=== PATIENT | female | born 1985 | race Caucasian/White ===

== ENCOUNTER 2022-02-06 10:09 | Outpatient (CLI) | payer OTHER, SELFPAY ==
[2022-02-06 11:56] LABS: Albumin* 3.9 g/dL (3.3-5.0)
[2022-02-06 11:58] LABS: Amylase* 52 U/L (18-89); Total Protein* 6.5 g/dL (6.0-8.3)
[2022-02-06 11:59] LABS: Alanine Aminotransferase* 24 U/L (4-35); Alkaline Phosphatase* 112 U/L (40-150); Aspartate Amino Transferase* 23 U/L (12-35); Bilirubin Direct* 0.2 mg/dL (0.0-0.5); Bilirubin Total* 0.3 mg/dL (0.1-1.5); Lipase* 95 U/L (23-300)
[2022-02-06 12:42] LABS: Vitamin B12* 547 pg/mL (243-894)
[2022-02-07 11:33] LABS: Estradiol Premenol Female 49 pg/mL
[2022-02-07 12:37] LABS: Follicle Stimulating Hormone 29.3 IU/L
[2022-02-12 09:06] LABS: Folate, Serum > 22.3 ng/mL (>=5.9)
== END 2022-02-06 10:10 | disposition home or self-care (01) ==
PROVIDERS: Obstetrics & Gynecology; PCP Nurse Practitioner Family; Visit Provider Nurse Practitioner Family
DX: R10.11 Right upper quadrant pain (principal); E89.40 Asymptomatic postprocedural ovarian failure; L65.9 Nonscarring hair loss, unspecified
CPT/HCPCS: 80076; 82150; 82607; 82670; 82746; 83001; 83690; 84443

== ENCOUNTER 2023-06-22 08:17 | Outpatient (CLI) | payer OTHER, SELFPAY | END 2023-06-22 08:18 | disposition home or self-care (01) | PROVIDERS: PCP Nurse Practitioner Family; Visit Provider Nurse Practitioner Family | DX: Z00.00 Encounter for general adult medical examination without abnormal findings (principal); I10 Essential (primary) hypertension; E55.9 Vitamin D deficiency, unspecified; E66.01 Morbid (severe) obesity due to excess calories; D64.9 Anemia, unspecified; Z13.0 Encounter for screening for diseases of the blood and blood-forming organs and certain disorders involving the immune mechanism; Z13.29 Encounter for screening for other suspected endocrine disorder; Z13.1 Encounter for screening for diabetes mellitus; Z13.6 Encounter for screening for cardiovascular disorders; Z13.228 Encounter for screening for other metabolic disorders | CPT/HCPCS: 80053; 80061; 82306; 84443; 85025 ==

== ENCOUNTER 2023-07-02 15:50 | Outpatient (CLI) | payer OTHER, SELFPAY ==
--- OUTSIDE RECORDS SUMMARY | 2023-07-03 07:24 | XMS_ITS | Clinical Summary ---
Author Name Unknown Organization [employer] [facility] Address [place], [place] [address] Care Team Providers Care Hearings Reporter Name Role Phone Nonstaff, Doctor Primary Care Provider Unavailab le Allergies Active Allergy Reactions Criticality Noted Date Comments Latex Rash 04/21/2006 Medications Medication Sig Dispensed Refills Start Date End Date Status omega-3 fatty acids-vitamin E (FISH OIL) 1,000 mg Cap Take 1 capsule by mouth once daily. 0 Active multivitamin-folic acid 0.4 mg (MULTIPLE VITAMIN) tablet Take 1 tablet by mouth once daily. 0 Active Breast Pump - Rental As directed. For home use. Gestation age at delivery: 35 weeks. Reason for need: mom/baby . Length of need: 3 months 1 unit 0 01/03/2011 Active oxyCODONE-acetamin ophen, 5-325 mg, (PERCOCET 5-325) 5-325 mg per tablet Take 1-2 tablets by mouth every 4 hours if needed for Pain (severe incision pain). Max acetaminophen dose: 4000mg in 24 hrs. 30 tablet 0 01/03/2011 Active lanolin (LANSINOH) ointment Apply topically to affected area(s) every hour if needed for Other (Specify) (For nipple discomfort.). 1 Tube 0 01/03/2011 Active ferrous sulfate, 65 mg elemental, (IRON, FERROUS SULFATE,) 325 mg (65 mg iron) tablet Take 1 tablet by mouth once daily with a meal. 30 tablet 0 01/03/2011 Active ibuprofen (ADVIL; MOTRIN) 600 mg tablet Take 1 tablet by mouth every 6 hours if needed for Pain. Maximum of 3200 mg in 24 hours. 60 tablet 0 01/03/2011 Active ferrous sulfate, 45 mg elemental, 142 mg (45 mg iron) extended release tablet Take 1 tablet by mouth once daily with a meal. 30 tablet 0 01/05/2011 Active citalopram (CELEXA) 20 mg tabletIndications: Major depressive disorder, single episode, unspecified Take 1 tablet by mouth once daily. 30 tablet 0 01/05/2011 Active docusate (COLACE) 100 mg capsule Take 1-2 capsules by mouth once daily if needed (take to keep stools soft). 60 capsule 0 01/05/2011 Active Active Problems Problem Noted Date Diagnosed Date GDM (gestational diabetes mellitus) 01/03/2011 Repeat C/S, Infant in NICU 01/02/2011 Pre-eclampsia, severe, delivered 01/02/2011 Obesity in , delivered 01/02/2011 Anemia 01/02/2011 Morbid obesity (BMI 40.0 or higher) 07/12/2008 Overview: Body mass index is 49.43 kg/(m^2). Major depressive disorder, single episode, unspe cified 09/25/2006 Estimated Date of Delivery Comme nts Yes 02/07/2011 Based on Other B asis Resolved Problems Problem Noted Date Diagnosed Date Resolved Date Primary LST Section at 41 1/7 weeks 9 01/02/2011 Post - dates 07/13/2008 09/20/2008 GBS (group B Streptococcus c arrier), +RV culture, currently 07/13/2008 09/20/2008 Failed medical induction of labor 07/13/2008 09/20/2008 Suspected VSD 06/23/2008 09/21/19 09 Unspecified suppurative otitis media 04/21/2006 01/02/2011 Immunizations Name Administration Dates Next Due DTaP 11/08/1990,12/24/1988,04/11/1986 ,02/02/1986 Hepatitis B (Adult) 12/10/2006 Hepatitis B (Peds) 04/20/2006,08/31/2003, 004 Human Papilloma Virus Vaccine 04/07/2007, 007 08/06/2007 MMR 12/24/1988 Oral Polio Vaccine 11/08/1990,12/24/1988 Tdap 12/22/2008 Tuberculin (PPD) 02/15/2007 Family History Medical History Relation Name Comments Hypertension Father Diabetes Maternal Grandmother Good Health Mother Thyroid Disease Mother Cancer Other uterine GGM Diabetes Paternal Grandfather Relation Name Status Comments Brother Alive Daughter Alive Father Alive Maternal Grandfather Maternal Grandmother Alive Mother Alive Other Paternal Grandfather Paternal Grandmother Alive Sister Alive x4 Social History Tobacco Use Types Packs/Day Years Used Date Smoking Tobacco: Former Cigarettes Q uit: 11/30/2007 Alcohol Use Standard Drinks/Week Comments Yes 0 (1 standard drink = 0.6 oz pur e alcohol) social Estimated Date of Delivery Comme nts Yes 02/07/2011 Based on Other B asis Sex and Gender Information Value Date Recorded Sex Assigned at Not on file Gender Identity Not on file Sexual Orientation Not on file Obstetrics History Para Term AB IAB SAB Ectopic Multiple Livin g Live Births 2 2 1 1 2 2 Date Outcome GA Total Labor Labor/2nd/3rd Weight Sex Delivery Anes PTL Raquel A1 A5 Name Cl in 07/13 Term 41w 0d 3.77 kg (8 lb 4.8 oz) F N Carol ng [place] Delivery Location:[facility] 01/01 35w 2d 2.92 kg (6 lb 7 oz) M Y Carol ng Delivery Location:[facility] Comments:In NICU at [facility] Last Filed Vital Signs Vital Sign Reading Time Taken Comments Blood Pressure 139/53 01/05/2011 8:03 AM CDT Pulse 65 01/05/2011 8:03 AM CDT Temperature 36.6 ??C (97.9 ??F) 01/05/2011 8:03 AM CD T Respiratory Rate 16 01/05/2011 8:03 AM CDT Oxygen Saturation 97% 01/04/2011 4:00 PM CDT Inhaled Oxygen Concentration - - Weight 134.8 kg (297 lb 1.6 oz) 01/04/2011 8:38 AM CDT Height 162.6 cm (5' 4) 01/02/2011 2:26 AM CDT Body Mass Index 51 01/02/2011 2:26 AM CDT Plan of Treatment Health Maintenance Due Date Last Done Comments COVID-19 vaccine series (#1) 06/04/1986 Depression screening for age 12+ 1997 BMI (ht and wt on same day) for age 18+ 12/03/2003 Tetanus booster 12/22/2018 12/22/2008 Pap test for age 21-65 12/14/2022 0, 12/15/2019, 08/18/2014, Additional history exists Influenza for age 9-49 01/30/2023 Hepatitis C screening for age 18-79 Completed 04/20/2006 HIV for age 15-65 Completed 12/15/2007 Tdap Completed 12/22/2008 Pneumococcal series for age 6-64 Aged Out No longer eligible based on patient's age to complete this topic Advance Directives Latest Code Status on File Code Status Date Activated Date Inactivated Comments Full Code 01/02/2011 1:54 AM 01/05/2011 4:56 PM Code Status History Code Status Date Activated Date Inactivated Comments Full Code 07/17/2008 7:44 AM 07/17/2008 10:36 AM Full Code 07/13/2008 8:40 PM 07/16/2008 8:41 PM Full Code 07/11/2008 5:12 PM 07/13/2008 4:18 PM Full Code 06/27/2008 9:42 AM 06/27/2008 1:00 PM Care Teams Hearings Reporter Relationship Specialty Start Date End Date Nonstaff, Doctor NON STAFF DOCTOR PCP - General 05/11/09
== END 2023-07-02 15:51 | disposition home or self-care (01) ==
LOC: NFLDREF 07-03 07:22
PROVIDERS: PCP Nurse Practitioner Family; Referring Provider Nurse Practitioner Family; Visit Provider Nurse Practitioner Family
DX: D64.9 Anemia, unspecified (principal); Z13.21 Encounter for screening for nutritional disorder
CPT/HCPCS: 82607; 82746; 83540; 83550

== ENCOUNTER 2023-09-29 13:00 | Outpatient (RCR) | payer OTHER, SELFPAY | END 2023-12-29 16:58 | disposition home or self-care (01) | PROVIDERS: PCP Nurse Practitioner Family; Visit Provider Physician Assistant | DX: M17.11 Unilateral primary osteoarthritis, right knee (principal); M19.09 Primary osteoarthritis, other specified site; M25.561 Pain in right knee; R26.89 Other abnormalities of gait and mobility; R29.898 Other symptoms and signs involving the musculoskeletal system; Z51.89 Encounter for other specified aftercare | CPT/HCPCS: 97110; 97162 ==

== ENCOUNTER 2024-06-23 08:17 | Outpatient (CLI) | payer OTHER, SELFPAY | END 2024-06-23 08:18 | disposition home or self-care (01) | PROVIDERS: PCP Nurse Practitioner Family; Visit Provider Nurse Practitioner Family | DX: I10 Essential (primary) hypertension (principal); E55.9 Vitamin D deficiency, unspecified; D64.9 Anemia, unspecified; Z13.220 Encounter for screening for lipoid disorders | CPT/HCPCS: 80053; 80061; 82306; 83036; 85025 ==

== ENCOUNTER 2025-03-20 11:21 | Emergency (ER) | payer OTHER, SELFPAY ==
[2025-03-20 12:01] VITALS: BP 165/82; PULSE 70; RESP 18; TEMP 36.9; O2SAT 97; BMI 60.1
--- NOTE | 2025-03-20 13:34 | ED.GENADULT ---
HPI - General Adult General Chief complaint: Unspecified Complaint, Adult Stated complaint: Exposure to a bat Time Seen by Provider: 03/20/25 12:12 Source: patient Mode of arrival: ambulatory Limitations: no limitations History of Present Illness HPI narrative: Patient is a 39-year-old female presenting to emergency department due to finding of after house. She states she was sitting in her dining room when a bat flew past her and rubbed up against her shoulder. She states she knows for a fact that it body rubbed up against her skin but does not think it has slowed down enough to bite her. Did not notice any bite church. Denies any pain. She is unsure how long the bat has been in the house. She has never been vaccinated for rabies before. This occurred shortly prior to arrival. She is told to come in by her clinic. Related Data Home Medications ?Medication ?Instructions ?Recorded ?Confirmed cholecalciferol (vitamin D3) 50 50 mcg PO QDAY 06/22/23 03/20/25 mcg (2,000 unit) capsule cetirizine 10 mg tablet 10 mg PO QDAY PRN 08/31/23 03/20/25 cyclobenzaprine 10 mg tablet 10 mg PO TID PRN 08/31/23 03/20/25 albuterol sulfate 90 mcg/actuation 2 puff inhalation Q4-6H PRN 07/08/24 03/20/25 aerosol inhaler sertraline 50 mg tablet 25 mg PO QDAY 11/28/24 03/20/25 fluticasone propionate 50 1 spray intranasal DAILY 03/20/25 03/20/25 mcg/actuation nasal spray,suspension montelukast 10 mg tablet 10 mg PO QPM 03/20/25 03/20/25 Previous Rx's ?Medication ?Instructions ?Recorded metoprolol tartrate 100 mg tablet 50 mg (1/2 x 100 mg) PO BID #90 06/23/24 tabs lorazepam 0.5 mg tablet (Ativan) 0.5 mg PO QDAY PRN anxiety #30 tabs 09/27/24 triamcinolone acetonide 0.5 % 1 applic topical TID #80 grams 10/11/24 topical cream estradiol 0.1 mg/24 hr semiweekly 1 patch transdermal 2XW #24 ea 11/28/24 transdermal patch mupirocin 2 % topical ointment 1 applic topical TID #22 grams 12/30/24 Allergies Allergy/AdvReac Type Severity Reaction Status Date / Time gadodiamide Allergy Mild Nausea Verified 03/20/25 12:07 Iodinated Contrast Media Allergy Verified 03/20/25 12:07 latex Allergy Verified 03/20/25 12:07 lisinopril Allergy Verified 03/20/25 12:07 Review of Systems Narrative: Pertinent systems reviewed and were negative unless stated in HPI PFSH PFSH Medical History Stress ?F43.9 - Reaction to severe stress, unspecified (ICD-10) Teratoma of ovary ?D27.9 - Benign neoplasm of unspecified ovary (ICD-10) Severe pre-eclampsia, with delivery (01/02/11) ?O14.14 - Severe pre-eclampsia complicating childbirth (ICD-10) Iatrogenic enterotomy Osteoarthritis of right patellofemoral joint ?M17.11 - Unilateral primary osteoarthritis, right knee (ICD-10) Major depressive disorder with single episode (09/25/06) ?F32.9 - Major depressive disorder, single episode, unspecified (ICD-10) Surgical History Status post unilateral salpingo-oophorectomy ?Z90.721 - Acquired absence of ovaries, unilateral (ICD-10) Status post laparotomy ?Z98.890 - Other specified postprocedural states (ICD-10) History of hysterectomy (06/19/20) ?Z90.710 - Acquired absence of both cervix and uterus (ICD-10) History of placement of ear tubes (~2006) ?Z96.22 - Myringotomy tube(s) status (ICD-10) History of laparoscopy (09/2017) ?Z98.890 - Other specified postprocedural states (ICD-10) History of cholecystectomy (12/2011) ?Z90.49 - Acquired absence of other specified parts of digestive tract (ICD-10) History of tonsillectomy (11/2008) ?Z90.89 - Acquired absence of other organs (ICD-10) History of bilateral tubal ligation (10/2015) ?Z98.51 - Tubal ligation status (ICD-10) History of section ?Z98.891 - History of uterine scar from previous surgery (ICD-10) Family History Mother Emphysema/COPD Smoker Thyroid disease Father Colon cancer, Onset Age: 47 Renal cell carcinoma Thyroid disease Paternal Grandfather Diabetes Maternal Grandmother Diabetes Maternal Grandmother Pulmonary embolism Sister Diabetes Social History Narrative: . 3 children. 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 Formal exercise. Former smoker. Alcohol, rare. No illicit drug use. What is your current living situation?: I presently have a place to live In the past 12 months, utilities in danger of being shut off: no In past 12 months, lack of transportation kept you from medical appts, meetings, work, or getting things needed for daily living: no In the past 12 mos, have been you worried that your food would run out before you had money to buy more?: never true In the past 12 mos, the food you bought just didn't last and you didn't have money to buy more?: never true Highest level of school completed/degree received: some college, no degree Physical activity type details: Cardio and weight lifting How many days of moderate to strenuous exercise, like a brisk walk, did you do in the last 7 days: 4 Smoking Status: Never smoker Non-prescribed substance use: denies use Are you now , , , , never or living with a partner: Social isolation score (0-1 are the most socially isolated patients): 1 How often does anyone, including family, friends and others, physically hurt you: never How often does anyone, including family, friends and others, insult or talk down to you: never How often does anyone, including family, friends and others, threaten you with harm: never How often does anyone, including family, friends and others, scream or curse at you: never Do you think of yourself as: straight/heterosexual Gender Identity: female Are you currently sexually active: Yes In the past 12 months, how many sex partners have you had: one Exam Narrative: Exam Narrative: Const: Well-nourished, Well-developed, in no distress Eyes: No conjunctival injection, and symmetrical lids HENT: Atraumatic external nose and ears. Moist mucous membranes. Neck: Symmetric, trachea midline, No thyromegaly. MSK:Extremities w/o deformity, Normal Active ROM Skin: Warm, Dry. No rashes or lesions. Neuro: Normal Muscle tone, No focal neurological deficits. Psych: Awake, Alert, & Oriented x3. Appropriate mood and affect. Const: Vital Signs, click to edit/add: Vital Signs - 24 hr 03/20/25 12:01 Temperature 98.5 F Pulse Rate [Right Pulse Oximeter] 70 Respiratory Rate 18 Blood Pressure [Ri ght Upper Arm] 165/82 H Pulse Oximetry 97 Oxygen Delivery Me thod Room Air Course Vital Signs Vital signs: Initial Vital Signs Temperature 98.5 F 03/20/25 12:01 Temperature Source Temporal Artery Scan 03/20/25 12:01 Pulse Rate 70 03/20/25 12:01 Pulse Rhythm Regular 03/20/25 12:01 Pulse Strength 3+ Normal 03/20/25 12:01 Respiratory Rate 18 03/20/25 12:01 Blood Pressure 165/82 H 03/20/25 12:01 Blood Pressure Mean 109 H 03/20/25 12:01 Blood Pressure Position Sitting 03/20/25 12:01 Pulse Oximetry 97 03/20/25 12:01 Oxygen Delivery Method Room Air 03/20/25 12:01 Vital Signs Temperature 98.5 F 03/20/25 12:01 Pulse Rate 70 03/20/25 12:01 Respiratory Rate 18 03/20/25 12:01 Blood Pressure 165/82 H 03/20/25 12:01 Pulse Oximetry 97 03/20/25 12:01 Oxygen Delivery Method Room Air 03/20/25 12:01 Temperature 98.5 F 03/20/25 12:01 Pulse Rate 70 03/20/25 12:01 Respiratory Rate 18 03/20/25 12:01 Blood Pressure 165/82 H 03/20/25 12:01 Pulse Oximetry 97 03/20/25 12:01 Oxygen Delivery Method Room Air 03/20/25 12:01 Medical Decision Making MDM Narrative Medical decision making narrative: Patient is a 39-year-old female presenting to the emergency department for a bat being found in her house. The bat is now outside of the hose is. Because the bat was in her house she was told to come to the ED by the clinic. After shared decision making we will start rabies prophylaxis. Discharge Plan Discharge Clinical Impression: Need for prophylactic vaccination against rabies Patient Disposition: Home, Self-Care Condition: Stable Additional Instructions: You will return on day 3, 7, 14 for the rest of your rabies series. Return to emergency department for any new or worsening symptoms Prescriptions: No Action metoprolol tartrate 100 mg tablet 50 mg PO BID Qty: 90 3RF albuterol sulfate 90 mcg/actuation HFA aerosol inhaler 2 puff inhalation Q4-6H PRN lorazepam [Ativan] 0.5 mg tablet 0.5 mg PO QDAY PRN (Reason: anxiety) Qty: 30 1RF triamcinolone acetonide 0.5 % cream 1 applic topical TID Qty: 80 1RF sertraline 50 mg tablet 25 mg PO QDAY estradiol 0.1 mg/24 hr patch semiweekly 1 patch transdermal 2XW Qty: 24 3RF cholecalciferol (vitamin D3) 50 mcg (2,000 unit) capsule 50 mcg PO QDAY cyclobenzaprine 10 mg tablet 10 mg PO TID PRN cetirizine 10 mg tablet 10 mg PO QDAY PRN mupirocin 2 % ointment 1 applic topical TID Qty: 22 1RF montelukast 10 mg tablet 10 mg PO QPM fluticasone propionate 50 mcg/actuation spray,suspension 1 spray INTRANASAL DAILY Follow Up/Referrals: Colette Drew, LIFE SCIENCES DIRECTOR, WOOD HEEL CEMENTER [Primary Care Provider, Family Practice] [facility] Instructions
[2025-03-20] MEDS: RABIES VACCINE (RABAVERT) 2.5 UNIT IM (14:45)
[2025-03-20] MEDS: RABIES IMMUNE GLOBULIN 150 UNIT/ML INJ 3000 UNIT INFILTRATI (14:46)
== END 2025-03-20 14:57 | disposition home or self-care (01) ==
PROVIDERS: Emergency Provider Student in an Organized Health Care Education/Training Program; PCP Nurse Practitioner Family
DX: Z20.3 Contact with and (suspected) exposure to rabies (principal)
CPT/HCPCS: 90377; 90471; 99282; 90675

== ENCOUNTER 2025-04-03 13:10 | Outpatient (RCR) | payer OTHER, SELFPAY ==
[2025-03-23] MEDS: RABIES VACCINE (RABAVERT) 2.5 UNIT IM (07:13)
[2025-03-23 07:15] VITALS: BP 155/88; PULSE 80; RESP 18; TEMP 36.6; O2SAT 98
[2025-03-27 15:59] VITALS: BP 157/87; PULSE 75; RESP 18; TEMP 36.8; O2SAT 97
[2025-03-27] MEDS: RABIES VACCINE (RABAVERT) 2.5 UNIT IM (16:01)
[2025-04-03 13:31] VITALS: BP 175/96; PULSE 80; RESP 18; TEMP 36.7; O2SAT 96
[2025-04-03] MEDS: RABIES VACCINE (RABAVERT) 2.5 UNIT IM (13:36)
== END 2025-04-03 13:41 | disposition home or self-care (01) ==
PROVIDERS: PCP Nurse Practitioner Family; Visit Provider Student in an Organized Health Care Education/Training Program
DX: Z29.14 Encounter for prophylactic rabies immune globulin (principal); Z20.3 Contact with and (suspected) exposure to rabies; Z23 Encounter for immunization
CPT/HCPCS: 80307; 90471; 90675